=== PATIENT | female | born 1965 | race Caucasian/White ===

== ENCOUNTER → 2018-02-15 | Outpatient (CLI) | payer OTHER ==
--- NOTE | 2018-02-15 15:01 | MR ---
EXAMINATION TYPE: MR lumbar spine wo con DATE OF EXAM: 02/15/2018 COMPARISON: Prior MRI lumbar spine March 28, 2014. HISTORY: Chronic pain and low back pain per order. Back pain for over 5 years going into bilateral bu ttocks and outer thigh per patient. TECHNIQUE: Multiplanar, multisequence imaging of the lumbar spine is performed without IV contrast. FINDINGS: Sagittal images of the lumbar spine show vertebral body heights and alignment to remain sat isfactory. Multilevel disc desiccation is redemonstrated slightly progressed from prior exam. There i s persistent moderate to advanced disc space narrowing most prominent anteriorly L1-L2 level with het erogeneous type I and type II endplate changes and moderate anterior spurring. There are small squad sergeant ior disc herniations mildly effacing anterior thecal sac at T12-L1 and L1-L2 levels on current study sagittal images. The conus medullaris is normal in position and signal ending at T12-L1 disc space l evel. There is additional mild multilevel anterior spurring in the upper to mid lumbar spine. Axial images at T12-L1 level shows central disc protrusion mildly effacing anterior thecal sac on axi al image 28, bilateral neural foramina are patent. Finding slightly more prominent versus prior. Axial images at L1-L2 level show broad-based posterior disc protrusion effacing anterior thecal sac o n axial image 22, bilateral neural foramina are patent. Finding slightly more prominent versus prior. Axial images at L2-L3 and L3-L4 levels are felt to remain within normal limits. Axial images at L4-L5 level redemonstrate mild to minimal facet arthropathy. Spinal canal is preserve d. Bilateral neural foramina are patent. No significant change from prior study is seen. Axial images at L5-S1 level show similar mild facet arthropathy. Spinal canal is preserved. Bilateral neural foramina are patent. No significant change from prior study is seen. No suspicious retroperitoneal findings are identified. IMPRESSION: Some multilevel degenerative changes in lumbar spine as detailed above with slight progre ssion in the upper lumbar findings noted from prior MRI.
== END | disposition home or self-care (01) ==
LOC: RADMRIMAIN 12:23
PROVIDERS: ATTEND Family Medicine
DX: M47.816 Spondylosis without myelopathy or radiculopathy, lumbar region (principal); G89.29 Other chronic pain
CPT/HCPCS: 72148

== ENCOUNTER 2018-05-01 16:59 | Emergency (ER) | payer OTHER ==
[2018-05-01 17:18] VITALS: BP 151/91; PULSE 83; RESP 20; TEMP 98
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
[2018-05-01] MEDS ORDERED: BACITRACIN 500 UNIT/GM OINT 28.4 GM TUBE TOPICAL ONE (17:49)
[2018-05-01] MEDS ORDERED: IBUPROFEN 600 MG STARTER PACK 4 TAB BTL PO STA (17:49)
== END 2018-05-01 18:09 | disposition home or self-care (01) ==
LOC: EC 16:59
DX: T25.222A Burn of second degree of left foot, initial encounter (principal); T25.232A Burn of second degree of left toe(s) (nail), initial encounter; K21.9 Gastro-esophageal reflux disease without esophagitis; F17.200 Nicotine dependence, unspecified, uncomplicated; Z79.899 Other long term (current) drug therapy; X10.1XXA Contact with hot food, initial encounter; Y99.0 Civilian activity done for income or pay
CPT/HCPCS: 16020; 99283

== ENCOUNTER 2020-02-23 11:14 | Emergency (ER) | payer OTHER ==
[2020-02-23 11:30] VITALS: RESP 18; TEMP 98
[2020-02-23] MEDS ORDERED: IBUPROFEN 600 MG STARTER PACK 4 TAB BTL PO STA (11:44)
[2020-02-23] MEDS ORDERED: ACET/COD 300 MG/30 MG STARTER PACK 6 TAB BTL PO STA (11:44)
--- NOTE | 2020-02-23 11:45 | ED ---
Lower Extremity Injury HPI - General Chief Complaint: Extremity Injury, Lower Stated Complaint: knee pain Time Seen by Provider: 02/23/20 11:32 Source: patient, RN notes reviewed, old records reviewed Mode of arrival: wheelchair Limitations: physical limitation - History of Present Illness Initial Comments: This is a 54-year-old female presents emergency Department today with complaint of left knee pain after it gave out on her last night. Patient states that she isn't having chronic left knee pain for the past month. Patient states that yesterday going up the stairs her knee gave out on her and twisted. Patient states that she previously had a steroid injection in her knee a few years ago. Patient denies any calf pain. She denies any numbness or tingling down the leg. She reports that the knee is swollen today. - Related Data Home Medications Medication Instructions Recorded Confirmed Omeprazole [PriLOSEC] 20 mg PO BID 06/16/14 02/23/20 HYDROcodone/APAP 10-325MG [[place] 1 tab PO TID PRN 02/23/20 02/23/20 10-325] Previous Rx's Medication Instructions Recorded Ibuprofen [Motrin] 600 mg PO Q8HR PRN #20 tab 02/23/20 Allergies Allergy/AdvReac Type Severity Reaction Status Date / Time No Known Allergies Allergy Verified 02/23/20 11:59 Review of Systems ROS Statement: Those systems with pertinent positive or pertinent negative responses have been documented in the HPI. ROS Other: All systems not noted in ROS Statement are negative. Past Medical History Past Medical History: GERD/Reflux Additional Past Medical History / Comment(s): knee pain - left History of Any Multi-Drug Resistant Organisms: None Reported Past Surgical History: Section, Cholecystectomy, Uterine Ablation Past Psychological History: No Psychological Hx Reported Smoking Status: Current every day smoker Past Alcohol Use History: Occasional Past Drug Use History: None Reported General Exam - General Exam Comments Initial Comments: 54 year old female, no distress. Limitations: physical limitation General appearance: alert, in no apparent distress Head exam: Present: atraumatic, normocephalic, normal inspection Eye exam: Present: normal appearance, PERRL, EOMI. Absent: scleral icterus, conjunctival injection, periorbital swelling ENT exam: Present: normal exam, mucous membranes moist Neck exam: Present: normal inspection. Absent: tenderness, meningismus, lymphadenopathy Respiratory exam: Present: normal lung sounds bilaterally. Absent: respiratory distress, wheezes, rales, rhonchi, stridor Cardiovascular Exam: Present: regular rate, normal rhythm, normal heart sounds. Absent: systolic murmur, diastolic murmur, rubs, gallop, clicks GI/Abdominal exam: Present: soft, normal bowel sounds. Absent: distended, tenderness, guarding, rebound, rigid Extremities exam: Present: normal inspection, full ROM, normal capillary refill. Absent: tenderness, pedal edema, joint swelling, calf tenderness Right Upper Leg exam: Present: normal inspection, full ROM Knee exam: Present: tenderness, swelling. Absent: normal inspection, full ROM (Patient reports pain with flexion greater than 45.) Lower Leg exam: Present: normal inspection, full ROM. Absent: laceration, ecchymosis, deformity, crepitus, dislocation, erythema, palpable cord, Homans' sign Ankle exam: Present: normal inspection, full ROM Foot/Toe exam: Present: normal inspection, full ROM Back exam: Present: normal inspection Neurological exam: Present: alert, oriented X3, CN II-XII intact Psychiatric exam: Present: normal affect, normal mood Skin exam: Present: warm, dry, intact, normal color. Absent: rash Course Vital Signs 02/23/20 11:28 Temperature 98.0 F Pulse Rate 79 Respiratory 18 Rate Blood Pressure 152/86 O2 Sat by Pulse 100 Oximetry Medical Decision Making - Medical Decision Making 54-year-old female presents today for evaluation with complaints of left knee pain after gave out on her last night. Patient does have some swelling to the anterior knee. Patient has some pain with range of motion greater than 45 angle of flexion. X-ray of the knee shows evidence of a arthritis. She has s welling and mechanism of twisting causing the pain discussed likely a meniscal injury as well as possible ligamentous tear. Patient is crutches. Patient has normal sensation in the leg and pulses are intact distally. She has no calf tenderness. At this time discussed treatment for a knee effusion with knee immobilizer and following up with orthopedic. We'll discharge Patient with anti-inflammatory medicine and prescription for pain meds discussed return parameters. Given referral for orthopedic. - Radiology Data Radiology results: report reviewed X-ray of the knee shows early changes of osteoarthritis. Disposition Clinical Impression: Left knee pain, Knee effusion, left, Sprain, knee Disposition: HOME SELF-CARE Condition: Good Instructions (If sedation given, give patient instructions): Knee Sprain (ED) Additional Instructions: Patient is advised to use the knee immobilizer. Patient can take antibiotic or medication for pain. Using the side effect of pain medicines and pain is more severe. Follow-up with orthopedic for further evaluation and possible further imaging such as MRI. Use crutches for ambulation. Prescriptions: Ibuprofen [Motrin] 600 mg PO Q8HR PRN #20 tab PRN Reason: Pain Is patient prescribed a controlled substance at d/c from ED?: No Referrals: Serafin Medina DO [Primary Care Provider] - 1-2 days Pritesh Ayon PAC [PHYSICIAN SCREW DOWN] - 1-2 days Time of Disposition: 12:16
--- NOTE | 2020-02-23 12:02 | XR ---
EXAMINATION TYPE: XR knee complete LT , 3 VIEWS DATE OF EXAM ORDERED: 02/23/2020 HISTORY: pain. COMPARISON: None. FINDINGS: Joint spaces are maintained. No fracture, dislocation or joint effusion is seen. There is mild peaking of intercondylar spines. IMPRESSION: EARLIEST CHANGES OF OSTEOARTHRITIS.
[2020-02-23 12:27] VITALS: BP 167/55; PULSE 62
== END 2020-02-23 12:44 | disposition home or self-care (01) ==
LOC: EC 11:14
DX: S83.92XA Sprain of unspecified site of left knee, initial encounter (principal); M25.462 Effusion, left knee; M17.12 Unilateral primary osteoarthritis, left knee; K21.9 Gastro-esophageal reflux disease without esophagitis; F17.200 Nicotine dependence, unspecified, uncomplicated; Z79.899 Other long term (current) drug therapy; X50.1XXA Overexertion from prolonged static or awkward postures, initial encounter
CPT/HCPCS: 73562; 99284; L1830

== ENCOUNTER → 2020-04-13 | Outpatient (CLI) | payer OTHER ==
[2020-04-13 14:03] LABS: Basophils % (A) 0 %; Eosinophils % (A) 1 %; HCT 41.8 % (34.0-46.0); HGB 14.3 gm/dL (11.4-16.0); Lymphocytes # (A) 2.3 k/uL (1.0-4.8); Lymphocytes % (A) 32 %; MCH 30.9 pg (25.0-35.0); MCHC 34.2 g/dL (31.0-37.0); MCV 90.2 fL (80.0-100.0); Mean Platelet Volume 6.9; Monocytes # (A) 0.3 k/uL (0-1.0); Monocytes % (A) 5 %; Neutrophils # (A) 4.4 k/uL (1.3-7.7); Neutrophils % (A) 61 %; Platelet Count 282 k/uL (150-450); RBC 4.63 m/uL (3.80-5.40); RDW 12.9 % (11.5-15.5); WBC 7.1 k/uL (3.8-10.6)
[2020-04-13 14:21] LABS: Potassium 3.7 mmol/L (3.5-5.1)
== END | disposition home or self-care (01) ==
LOC: LABPAT 11:51
PROVIDERS: ATTEND Orthopaedic Surgery
DX: Z01.818 Encounter for other preprocedural examination (principal); M23.92 Unspecified internal derangement of left knee
CPT/HCPCS: 36415; 80051; 85025; 93005

== ENCOUNTER → 2020-04-16 | Day surgery (SDC) | payer OTHER ==
[2020-04-14 15:13] VITALS: BMI 34.5
--- NOTE | 2020-04-15 14:17 | HP ---
HISTORY AND PHYSICAL DATE OF SURGERY: 04/16/2010. Sofía Choudhury is a 54-year-old patient seen with progressive left knee pain. We discussed options for treatment. She elected to proceed with arthroscopy. Consent was obtained. PAST MEDICAL HISTORY: Hypertension. PAST SURGICAL HISTORY: section, cholecystectomy. DAILY MEDICATIONS: Naylor, ibuprofen. ALLERGIES: None. SOCIAL HISTORY: Currently smokes cigarettes. PHYSICAL EVALUATION OF THE LEFT KNEE: Her range of motion is -2 to 120. There is a mild effusion present. She has tenderness along the medial lateral joint lines. Positive medial Gin's. Positive lateral Gin's. Ligaments are stable. Hip rotation is without pain. Distal neurovascular exam is intact. RADIOGRAPHS OF THE LEFT KNEE: Reveal mild osteoarthritis. MRI of the left knee revealed an abnormal signal through the medial and lateral meniscus. IMPRESSION: 1. Internal derangement left knee with meniscal tear versus osteochondral tear. 2. Hypertension. 3. Chronic opioid use. PLAN: Left knee arthroscopy with partial meniscectomy versus chondroplasty and partial synovectomy. MMODL / IJN: [id number] /
[~2020-04-16] MED LIST: BUPIVACAINE (PF) 0.25% 30 ML VIAL SQ ONE; DEXAMETHASONE SOD PHOSPHATE 10 MG/ML 1 ML VIAL IV ONE; HYDROcodone/APAP 10-325MG 1 EACH TAB PO ONE; IV FLUID CONTINUATION 1,000 ML IV ONE; LACTATED RINGERS 1,000 ML IV ONE; LACTATED RINGERS 1,000 ML IV SCH; LIDOCAINE 1% INJ 10MG/ML (20 ML MDV) ONE; MIDAZOLAM 2 MG/2 ML VIAL ONE; ONDANSETRON 4 MG/2 ML VIAL IVP ONE; PROPOFOL 10 MG/ML 20 ML VIAL IV ONE; SUCCINYLCHOLINE CHLORIDE 100 MG/5 ML SYR IV ONE; fentaNYL (PF) 50 MCG/ML 2 ML AMP ONE
[2020-04-16 10:24] VITALS: TEMP 97.4
[2020-04-16] MEDS: HYDROmorphone 0.5 MG/0.5 ML SYRINGE IVP PRN ×2 (12:40→12:45)
--- NOTE | 2020-04-16 12:40 | P.OP ---
Date of Procedure: 04/16/20 Preoperative Diagnosis: Internal derangement left knee Postoperative Diagnosis: 1. Complex tear medial meniscus left knee 2. Reactive synovitis medial, lateral and suprapatellar compartments left knee Procedure(s) Performed: 1. Arthroscopic partial medial meniscectomy left knee 2. Arthroscopic partial synovectomy medial, lateral and suprapatellar compartments left knee Anesthesia: MARIOA, local Surgeon: Oswald Busby Estimated Blood Loss (ml): 8 Pathology: none sent Condition: stable Disposition: PACU Indications for Procedure: 54-year-old patient seen with progressive left knee pain. After treatment options were discussed, she elected to proceed with arthroscopy. Operative Findings: See description of procedure Description of Procedure: Patient was taken to the operative suite. Patient underwent a general anesthetic by the department of anesthesia. Patient was given preoperative antibiotics. The left lower extremity was placed in a well-padded arthroscopic leg farnsworth. The left leg was prepped and draped in the normal sterile orthopedic fashion. A lateral parapatellar and suprapatellar incision was made. Trochars were inserted. Arthroscopy was initiated. Suprapatellar pouch revealed diffuse thick reactive synovitis. The patellofemoral joint appeared to articulate congruently. There with grade 1/2 chondromalacia of the patella with no osteochondral tears present. The scope was guided into the medial gutter. No loose bodies or plica were identified. The scope was then guided into the medial compartment. A medial parapatellar incision was made. Trocar inserted followed by probe. There was a complex tear involving the root of the medial meniscus extending to almost the midbody area. There were grade 1/2 chondromalacia changes of the medial femoral condyle with no osteochondral tears present. There was thick reactive synovitis anteriorly. I performed a partial medial meniscectomy getting down to stable meniscal tissue. I performed a partial synovectomy decompressing reactive synovitis. Shaver was removed. The residual meniscus was stable. Scope and probe were then guided into the intercondylar notch. Cruciates were identified, probed and found to be stable. The scope and probe were then guided into lateral compartment. Lateral meniscus was probed and found to be stable. There was thick reactive synovitis anteriorly. There was no significant chondromalacia. I introduced a motorized shaver and performed a partial synovectomy decompressing reactive synovitis. The shaver was removed. There was good decompression of the synovitis. The scope was in guided back into the suprapatellar compartment. Used a motorized shaver into the super patellar compartment. I debrided some piecemeal fragments of meniscus I encountered. I performed a partial synovectomy decompressing the thick reactive synovitis. The shaver was removed. There was good decompression of synovitis. Instruments were now removed from the joint. The joint was infiltrated with .25% Marcaine. Steri-Strips were applied to the portal sites. Sterile dressings were applied. The patient was placed into a WILLIAM hose. No tourniquet was utilized. The patient was awakened, transferred to a bed and taken to recovery stable satisfactory condition.
[2020-04-16 13:52] VITALS: PULSE 83
[2020-04-16 14:06] VITALS: BP 167/82; RESP 18
== END | disposition home or self-care (01) ==
LOC: OR 09:55
PROVIDERS: ATTEND Orthopaedic Surgery
DX: S83.242A Other tear of medial meniscus, current injury, left knee, initial encounter (principal); X58.XXXA Exposure to other specified factors, initial encounter; M65.862 Other synovitis and tenosynovitis, left lower leg; M22.42 Chondromalacia patellae, left knee; I10 Essential (primary) hypertension; Z90.49 Acquired absence of other specified parts of digestive tract; Z98.890 Other specified postprocedural states; F17.210 Nicotine dependence, cigarettes, uncomplicated; K21.9 Gastro-esophageal reflux disease without esophagitis; Z79.899 Other long term (current) drug therapy; Z79.1 Long term (current) use of non-steroidal anti-inflammatories (NSAID); Z79.891 Long term (current) use of opiate analgesic
CPT/HCPCS: 29881; 29876; 81025; J2250; J1100; J0690; J2405; J2001; J3010; J0330; J2704; J1170

== ENCOUNTER → 2021-11-22 | Outpatient (CLI) | payer OTHER ==
[2021-11-22 09:27] VITALS: BP 158/76; PULSE 98; RESP 18; TEMP 97.9
--- NOTE | 2021-11-22 09:38 | P.CON ---
Consult Note - . Consult date: 11/22/21 Assessment/Plan:: HISTORY OF PRESENT ILLNESS: 56 year old female, as a referral from Dr Aaron, presents today with lower back pain on & off for several years. Pain is 5 /10 in intensity, waxes & wanes throughout the day based on activity, is dull and achy in the lower lumbar spine and radiates as a sharp, burning pain down the hips and lower extremities. She has had multiple lumbar TPIs and L hip injections by previous physicians that have given her significant relief. She is currently on [place] 10/325mg TID from Dr Aaron and also takes OTC Tylenol. She also benefits from topical Bio freeze gel, heat application and stretches at home. PMH: HTN PSH: TPIs of hte Lumbar Spine, L Hip Injections, L Knee Meniscal Repair, Cholycystectomy, Uterine Ablation, C-sections x3 SH: Lives alone. No Tobacco use. Occasional ETOH use FH: Non contributory All: NKDA Meds: See list REVIEW OF ORGAN SYSTEMS: CONSTITUTIONAL: No fevers or chills. No recent weight loss. HEENT: No visual acuity loss, eye pain, difficulties with hearing. No nosebleeds. No difficulty swallowing. RESPIRATORY: Denies any troubles with breathing or dyspnea on exertion. CARDIOVASCULAR: Denies any chest pain, palpitations, or recent heart attacks. GASTROINTESTINAL: Denies fatty food intolerance. Has change in bowel habits and gas bloat. GENITOURINARY: Denies any blood in urine. Has increased urinary frequency. NEUROLOGICAL: + numbness and tingling along the distal extremities. No seizure disorders or headaches. MUSCULOSKELETAL: + back pain SKIN: No skin cancer. No rash. PSYCHIATRIC: Denies current depression or suicidal thoughts. ENDOCRINE: Denies current thyroid disorders. Denies any blood sugar glucose intolerance. HEME/LYMPHATIC: Denies any lumps and bumps around the neck. History of deep venous thrombosis. ALLERGY/IMMUNOLOGY: No immunoglobulin therapy. No immune deficiencies. BREAST: Denies current breast lumps, pain or nipple discharge. Physical Examinations : Constitutional : Cooperative , not in acute distress . HEENT: Neck supple. No Lymphadenopathy. Normal thyroid size . Eyes no ptosis , no icterus, no photophobia . Hearing intact. Normal oropharynx. No Thrush. Respiratory : Chest clear to auscultations bilaterally. No wheezing. No rhonchi. Cardiovascular : Regular rate and rhythm , S1 / S2. No S3 . No S4. Gastrointestinal : Abdomen soft. No tenderness. Bowel sounds x 4. No organomegaly . Genitourinary : Deferred. Neurologic : Cranial nerve II to XII intact. No focal neurological deficits. Psychiatric : alert & oriented x 3. Matching mood & appropriate affect. Judgment & insight intact. Lymphatic No Lymphadenopathy. Musculoskeletal : Cervical Spine Motor strength in the deltoid and biceps: Normal right side. Normal Left side Motor strength biceps and the wrist extensors: Normal right side . Normal left side Motor strength in the triceps muscle: Normal right side. Normal left side Deep tendon reflexes: Normal at the biceps. Normal at Brachioradialis. Normal at triceps Cervical facet loading test: positive bilaterally Spurling test: positive bilaterally Neck distraction test: positive bilaterally Siddharth sign: positive bilaterally Lumbar spine Motor strength lower extremities ,thigh and legs 5/5 Right side , 5/5 Left side Deep tendon reflexes : Normal Knee Jerk. Normal Ankle Jerk Lumbar facet Loading Test: positive Right / positive Left at L4-L5 & L5-S1 Range of motion of the lumbar spine Flexion 75 degrees, extension 10 degrees Straight Leg Raise test: Left/ Right positive at < 45 degrees Yoli test: positive right / positive left. Severe tenderness over the Sacroiliac joint on the Right / Left side Gaenslen test: positive bilaterally Seated flexion test: positive bilaterally. IMAGING MRI Lumbar Spine 02/15/2018 : T12 - L1 central disc protrusion mildly effacing the anterior thecal sac, L4-L5 facet arthropathy, L5-S1 facet arthropathy Assessment/ Plan : Recommendation of L5-S1 LESI. May need repeat LESI or SI joint injection(s) at a later time Continue medications as directed Denies aspirin or anti coagulant use I have spent greater than 50 minutes on patient care today. Dr Fuentes was available by phone for the evaluation of this patient. The time was used to review the medical records including relevant urine studies and Prescription history (MAPs), review of the available imaging, evaluation and examination of the patient, coordination of care with the medical staff and if applicable referring physicians, as well as creation of the medical record PQRS Measure Charge Sheet Mode of Arrival: Ambulatory - Pain Location Lower Back Non-Pharmacological Interventions: Heat, Home Exercise, Ice, Inactivity, Position/Reposition, Stretching Pharmacological Interventions: Medication, PRN Medication PQRS Narrative: Smoking Status Current every day smoker Blood Pressure 158/76 Pain Intensity [Lower Back] 7 Scale Used Numeric (1 - 10) Hx Alcohol Use (MH) Yes Home Medications: Ambulatory Orders HYDROcodone/APAP 10-325MG [[place] 10-325] 1 tab PO TID 02/23/20 Omeprazole [PriLOSEC] 40 mg PO DAILY 04/14/20 hydroCHLOROthiazide [Hydrodiuril] 12.5 mg PO DAILY 04/14/20 Ibuprofen [Motrin Ib] 200 PO Q8HR PRN 11/22/21
== END ==
LOC: PNWHC3 09:01
PROVIDERS: ATTEND Physician Assistant Medical
DX: M51.36 Other intervertebral disc degeneration, lumbar region (principal); I10 Essential (primary) hypertension; F17.200 Nicotine dependence, unspecified, uncomplicated
CPT/HCPCS: 99211

== ENCOUNTER 2021-12-28 11:09 | Day surgery (SDC) | payer OTHER ==
[2021-12-27 11:06] VITALS: BMI 35.2
[2021-12-28 11:31] VITALS: TEMP 98.4
[2021-12-28 11:39] LABS: Glucose,Whole Blood 82 mg/dL (75-99)
[2021-12-28] MEDS ORDERED: LACTATED RINGERS 1,000 ML IV ONE (11:39)
[2021-12-28] MEDS ORDERED: methylPREDNISolone ACETATE 40 MG/ML 1 ML VIAL ONE (11:43)
[2021-12-28] MEDS ORDERED: fentaNYL (PF) 50 MCG/ML 2 ML AMP ONE (11:43)
[2021-12-28] MEDS ORDERED: MIDAZOLAM 2 MG/2 ML VIAL ONE (11:43)
[2021-12-28] MEDS ORDERED: IOPAMIDOL M200 10 ML VIAL ONE (11:43)
--- NOTE | 2021-12-28 12:00 | P.PCN ---
Date of Procedure: 12/28/21 Procedure(s) Performed: PREOPERATIVE DIAGNOSIS: 1- Lumbar Degenerative Disc Diseases 2-Lumbar spondylosis with Facet arthropathy without myelopathy POSTOPERATIVE DIAGNOSIS: Same as preop diagnosis. PROCEDURE 1. Lumbar epidural steroid injection under fluoroscopic guidance at the L5-S1 level. (Fluoroscopy imaging was available in radiology department) 2. Lumbar epidurogram. ANESTHESIA: Local with 1% lidocaine 3 ml and , moderate sedation with intravenous Versed 2 mg ,and fentanyle 100 Mcg EBL: Minimal PROCEDURE INDICATION: The patient with low back pain and radiculitis symptoms unresponsive to conservative treatment. Fluoroscopy was used to optimize visuali zation of the needle placement and to maximize safety. PROCEDURE DESCRIPTION / TECHNIQUE: The patient was seen and identified in the preoperative area. Risks, benefits, complications including but not limited to infections ,bleeding ,allergic reaction to the medications ,nerve damage and not complete pain releife , and alternatives were discussed with the patient. The patient agreed to proceed with the procedure and signed the consent. IV was started, and vital signs were stable. Patient was taken to the OR and time out was completed. The patient was placed in the prone position on procedure table and a pillow was placed under the abdomen to reduce lumbar lordosis. The lumbosacral area was prepped and draped in the usual sterile fashion.ere closely monitored during the procedure. Conscious sedation was used during the procedure to decrease patients anxiety. Vital signs was monitered during the entire procedure. Using anterior-posterior fluoroscopy, the L5-S1 interlaminar space was identified and the skin over this site was marked and then infiltrated with 1% lidocaine subcutaneously. Subsequently, a 20-gauge Tuohy epidural needle was inserted and advanced toward the epidural space using the ``Loss of resistance technique and guided by AP and lateral fluoroscopy. The correct needle position in the epidural space was verified with the injection of 2 mL of the water jefe uble contrast dye Isovue 200 contrast and observing an excellent epidurogram with the epidural spread of the dye, after negative aspiration for blood and CSF and in the absence of paresthesias. Again after negative aspiration, a 6 ml mixture containing 40 mg of Depo-medrol , and 2 ml of preservative free Normal Saline, and 2 ml of preservative free lidocaine 1% solution was injected and a washout of epidurogram was seen. Needle was withdrawn intact, skin was cleansed, and bandages were applied. COMPLICATIONS: None DISPOSITION / PLANS: The patient was placed in a supine position and transferred to the recovery area in a stable condition for observation. There was no evidence of lower extremity motor or sensory deficit after the procedure. Patient was discharged from the recovery room after meeting discharge criteria. Home discharge instructions were given to the patient by the staff. The patient was reexamined prior to discharge. The patient will schedule a follow up in the clinic in 2-4 weeks.
--- NOTE | 2021-12-28 12:08 | FL ---
Fluoroscopy HISTORY: Pain 2 seconds fluoroscopy time supplied to the referring clinician. 1 intraoperative C-arm images docume nt the procedure. See dictated report from anesthesia.
[2021-12-28] MEDS ORDERED: IV FLUID CONTINUATION 1,000 ML IV ONE (12:14)
[2021-12-28 12:18] VITALS: RESP 16
[2021-12-28] MEDS ORDERED: LACTATED RINGERS 1,000 ML IV SCH (12:19)
[2021-12-28 12:26] VITALS: BP 136/70; PULSE 74
== END 2021-12-28 12:31 | disposition home or self-care (01) ==
LOC: ORPAIN 11:09
PROVIDERS: ATTEND Specialist
DX: M51.16 Intervertebral disc disorders with radiculopathy, lumbar region (principal); M47.26 Other spondylosis with radiculopathy, lumbar region; N95.9 Unspecified menopausal and perimenopausal disorder; Z98.51 Tubal ligation status; Z98.890 Other specified postprocedural states
CPT/HCPCS: 62323; J2250; J1030; J3010; Q9966; 99152

== ENCOUNTER → 2024-07-01 | Outpatient (CLI) | payer OTHER ==
--- NOTE | 2024-07-01 11:11 | CTL ---
EXAMINATION TYPE: CT Low Dose Lung DATE OF EXAM ORDERED: 07/01/2024 HISTORY: . Lung cancer screening CT DLP: 134.[address] CTDI: 4.0 mGy Automated exposure control for dose reduction was used. SCREENING VISIT: COMPARISON: None TECHNIQUE: Low dose computed tomography scan was performed through the chest at 1 mm thick sections a nd reconstructed images in multiple planes at 1 mm and [address] DIAGNOSTIC QUALITY: Satisfactory FINDINGS: Nodules: There is a right upper lobe nodule measuring 5 mm axial image 28 series 6, 4 mm subpleural nodule im age 36 series 6 and 1 mm subpleural nodule image 31.. LUNGS: Subsegmental areas of consolidation most typical of atelectasis. No consolidative pneumonia. No pulmo nary edema. Mild atherosclerotic change aorta. Heart size normal. Small hiatal hernia. Postcholecystectomy clips. Multilevel hypertrophic and degenerative change of the spine. Assessment for adenopathy limited due to lack of contrast. Grossly no pathologic adenopathy. Interlob ular septal thickening along the periphery of the posterior lung bases could represent early intersti tial pulmonary fibrosis. IMPRESSION: 1. There are 5 mm or less pulmonary nodules too small to characterize. Recommend 12 month follow-up a ccording to Fleischner assigning guidelines as clinically warranted. CT LUNG RAD AND CT CHEST RECOMMENDATION: Lung-Rad 3 Probably Benign: 6 month follow-up LDCT.
== END | disposition home or self-care (01) ==
LOC: RADCTMAIN 10:20
PROVIDERS: ATTEND Internal Medicine
DX: Z12.2 Encounter for screening for malignant neoplasm of respiratory organs (principal); R91.8 Other nonspecific abnormal finding of lung field; Z87.891 Personal history of nicotine dependence
CPT/HCPCS: 71271

== ENCOUNTER 2024-08-13 10:10 | Day surgery (SDC) | payer OTHER ==
[2024-08-12 10:15] VITALS: BMI 35.2
[2024-08-13 10:49] VITALS: TEMP 97
[2024-08-13] MEDS: IV FLUID CONTINUATION 1,000 ML IV ONE (10:55)
[2024-08-13] MEDS: LACTATED RINGERS 1,000 ML IV SCH (10:55)
[2024-08-13] MEDS ORDERED: LIDOCAINE 1% INJ 10MG/ML (20 ML MDV) ONE (11:23)
[2024-08-13] MEDS ORDERED: PROPOFOL 10 MG/ML 20 ML VIAL IV ONE (11:23)
--- NOTE | 2024-08-13 11:28 | P.GSHP ---
History of Present Illness H&P Date: 08/13/24 Chief Complaint: Epigastric pain 59-year-old female here for upper endoscopy. Patient with history of questionable hiatal hernia and chronic reflux. Patient with episodes of intermittent dysphagia. Recently has had increasing epigastric pain. Past Medical History Past Medical History: GERD/Reflux, Hypertension, Musculoskeletal Disorder, Osteoarthritis (OA) Additional Past Medical History / Comment(s): Frequent vomiting, hiatal hernia. Back and neck pain, DDD. IBS, diverticulosis. History of Any Multi-Drug Resistant Organisms: None Reported Past Surgical History: Section, Cholecystectomy, Orthopedic Surgery, Uterine Ablation Additional Past Surgical History / Comment(s): Left knee arthroscopy, section X3, EGD, colonoscopy. Past Anesthesia/Blood Transfusion Reactions: No Reported Reaction Smoking Status: Former smoker, Light tobacco smoker - Past Family History Father Family Medical History: Cancer Mother Family Medical History: Cancer Medications and Allergies Home Medications Medication Instructions Recorded Confirmed Type HYDROcodone/APAP 10-325MG [[place] 1 tab PO QID PRN 02/23/20 08/13/24 History 10-325] L.acidoph,Paracasei, B.lactis 1 each PO DAILY 08/12/24 08/13/24 History [Probiotic] Omeprazole Magnesium [PriLOSEC OTC] 20 mg PO DAILY 08/12/24 08/13/24 History Psyllium Husk [Fiber Capsule] 0.4 gm PO DAILY 08/12/24 08/13/24 History Allergies Allergy/AdvReac Type Severity Reaction Status Date / Time No Known Allergies Allergy Verified 08/13/24 10:44 Surgical - Exam Vital Signs Temp Pulse Resp BP Pulse Ox 97.0 F L 84 18 122/85 97 08/13/24 10:43 08/13/24 10:43 08/13/24 10:43 08/13/24 10:43 08/13/24 10:43 Physical exam: General: Well-developed, well-nourished HEENT: Normocephalic, sclerae nonicteric Abdomen: Nontender, nondistended Extremities: No edema Neuro: Alert and oriented Assessment and Plan (1) Abdominal pain Narrative/Plan: Will proceed with upper endoscopy at this time. Current Visit: No Status: Acute Code(s): R10.9 - UNSPECIFIED ABDOMINAL PAIN SNOMED Code(s): 67234807
--- NOTE | 2024-08-13 11:36 | P.PCN ---
Date of Procedure: 08/13/24 Procedure(s) Performed: Preoperative Dx: GERD, epigastric pain Postoperative Dx: Gastritis with small erosions, small hiatal hernia Procedure: EGD with Bx Anesthesia: Sedation Endoscopist: Dr. Vo Specimens: Antrum Endoscopic Procedure: The patient was on the endoscopy table in the left decubitus position. The Olympus gastroscope was inserted into the oropharynx and passed under direct visualization to the region of the third portion of the duodenum. From that point the scope was slowly withdrawn inspecting all surfaces carefully. There were no neoplastic inflammatory or polypoid lesions throughout the duodenum. The pylorus was widely patent. The stomach was carefully inspected. There was gastritis with a few small superficial erosions noted. A biopsy of the antrum took place to rule out H. pylori. Retroflexion revealed a small sliding hiatal hernia. The GE junction was present 1.5 cm above the diaphragmatic hiatus. The esophagus was examined and appeared normal. The patient was then taken to the recovery room in stable condition per anesthesia guidelines. Recommendations: Await biopsy results. Increase antiacid therapy. Add Carafate.
[2024-08-13 11:42] VITALS: RESP 16
[2024-08-13 11:53] VITALS: BP 147/78; PULSE 77
== END 2024-08-13 12:08 | disposition home or self-care (01) ==
LOC: ORWHC2ENDO 10:10
PROVIDERS: ATTEND Surgery
DX: K21.9 Gastro-esophageal reflux disease without esophagitis
CPT/HCPCS: 43239; 88305